=== PATIENT | male | born 1960 | race Caucasian/White ===

== ENCOUNTER 2016-07-30 08:58 | Emergency (ER) | payer BC ==
[~2016-07-30] VITALS: Ht 180.3 cm; Wt 87.5 kg
[2016-07-30] MEDS ORDERED: MULTI VITAMIN1 EACH PO (09:26)
[2016-07-30 09:29] LABS: EOSINOPHIL (%) 0.9 % (0-5); EOSINOPHIL COUNT 0.1 K/uL (0-0.3); HEMATOCRIT 47.9 % (38.0-50.0); IMMATURE GRANULOCYTE (%) 0.2 % (0.0-0.7); INSTRUMENT ABS NEUTROPHIL CT 3.7 K/uL; LYMPHOCYTE COUNT 1.1 K/uL (1.0-2.8); MCH 32.2 PG (29.0-34.0); MCHC 34.9 G/DL (30.0-36.0); MCV 92.5 FL (86-99); MONOCYTE (%) 7.9 % (3-12); MONOCYTE COUNT 0.4 K/uL (0-0.8); NEUTROPHIL (%) 69.4 % (45-76); NEUTROPHIL COUNT 3.7 K/uL (1.8-6.4); PLATELET COUNT 221 K/uL (156-360); RBC DIS.WIDTH-CV 11.4 % (11.8-14.6); RBC DIS.WIDTH-SD 39.1 % (39-53); RED BLOOD COUNT 5.18 M/uL (4.00-5.50); WHITE BLOOD COUNT 5.3 K/uL (4.1-10.2)
[2016-07-30 09:40] LABS: PROTHROMBIN TIME 10.6 (9.2-11.2); PTT 29.6 (25-32)
[2016-07-30 09:43] LABS: CHLORIDE 104 mEq/L (99-109); SODIUM 140 mEq/L (136-147)
[2016-07-30 09:45] LABS: GLUCOSE 103 mg/dL (70-99)
[2016-07-30 09:46] LABS: ANION GAP 10 MEQ/L (2-14)
[2016-07-30 09:47] LABS: TOTAL BILIRUBIN 0.9 mg/dL (0.0-1.0)
[2016-07-30 09:49] LABS: ALKALINE PHOSPHATASE 80 IU/L (3-129); GFR ESTIMATE (CALCULATED) > 59 mL/min/
[2016-07-30 09:50] LABS: TROP-I INTERPRETATION NEGATIVE; TROPONIN-I < 0.01 ng/mL (0.0-0.30); UREA NITROGEN (BUN) 19 mg/dL (9-23)
[2016-07-30 09:52] LABS: CREATINE KINASE 106 IU/L (1-294); TOTAL CK 106 IU/L (1-294)
[2016-07-30 09:58] LABS: CK-MB 1.3 ng/mL (0.0-4.9)
[2016-07-30 12:04] LABS: TROP-I INTERPRETATION NEGATIVE; TROPONIN-I < 0.01 ng/mL (0.0-0.30)
[2016-07-30 12:28] VITALS: BP 116/79
== END 2016-07-30 12:28 | disposition home or self-care (01) ==
LOC: EME 08:58
PROVIDERS: Emergency Medicine
DX: R07.89 Other chest pain (principal)
CPT/HCPCS: 71010; 80053; 82550; 82553; 84484; 85025; 85379; 85610; 85730; 93005; 99281; 99284